=== PATIENT | male | born 1965 | race Caucasian/White ===

== ENCOUNTER → 2018-09-26 15:53 | Outpatient (CLI) | payer BC, SELFPAY ==
[2018-09-26 15:50] VITALS: BMI 27.3
--- NOTE | 2018-09-26 15:55 | RAD_ITS ---
STUDY: X-RAY - RIGHT KNEE REASON FOR EXAM: Male, 53 years old. Knee pain TECHNIQUE: 4 view(s) of the knee. COMPARISON: None. FINDINGS: Normal visualized distal femur. Normal visualized proximal tibia and fibula. Normal proximal tibiofibular articulation. Normal medial femorotibial compartment. Normal lateral femorotibial compartment. Normal patellofemoral articulation. The soft tissue structures are unremarkable. RAD/Knee 4 or More Views IMPRESSION: Normal x-ray examination of the knee. Electronically Signed: Lobo Lind MD at 16:34 EDT Tel , Service support ,
== END ==
PROVIDERS: Family Provider Family Medicine; PCP Family Medicine; Referring Provider Physician Assistant; Visit Provider Physician Assistant
DX: M25.561 Pain in right knee (principal)
CPT/HCPCS: 73564

== ENCOUNTER → 2020-04-01 09:10 | Outpatient (CLI) | payer BC, SELFPAY ==
[2018-09-26 15:50] VITALS: BMI 27.3
[2020-04-01 10:57] LABS: Anion Gap 7 (5-15); BUN 11 mg/dL (7-18); BUN/Creat Ratio 9.7 RATIO (10-20); Calcium,Total 9.5 mg/dL (8.5-10.1); Chloride 104 mmol/L (98-107); Cholesterol 165 mg/dL (200); Creatinine, Serum 1.13 mg/dL (0.70-1.30); EST Glomerular Filtration Rate 72 mL/min (>60); Est Glom Filt Rate - Afr Amer 87 mL/min (>60); Glucose 98 mg/dL (74-106); High Density Lipoprotein 47 mg/dL; Potassium 3.7 mmol/L (3.5-5.1); Sodium Level 137 mmol/L (136-145); Triglycerides 160 mg/dL; Very Low Density Lipoprotein 32 mg/dL (5-40)
== END ==
PROVIDERS: PCP Family Medicine; Referring Provider Family Medicine; Visit Provider Family Medicine
DX: Z00.00 Encounter for general adult medical examination without abnormal findings (principal)
CPT/HCPCS: 36415; 80048; 80061

== ENCOUNTER 2020-04-02 08:17 | Day surgery (SDC) | payer BC, SELFPAY ==
[2018-09-26 15:50] VITALS: BMI 27.3
--- NOTE | 2020-04-02 | COLBX_PTH ---
PATIENT: AMINA FELIZ LOC: EN U#:[id number] AGE/SX: 54/M ROOM: RE04/02/[address]: Dr. Otoniel Knapp MD : 1965 BED: DIS: 04/02/2020 SPEC #: [id number] RECD: 04/02/20 10:01 STATUS: DEBRA BEREKET #: [id number] JONI: 04/02/20 00:[address]: Otoniel Knapp DEPT: SURGICAL PATHOLOGY RECD BY: Carter Tate ENTERED: 04/02/20 10:01 SP TYPE: COLON BX OTHR DR: Dr. Domingo Min MD Tissues: A - Descending colon B - Sigmoid colon biopsy Procedures: Surgery Specimen Level IV HEADER OPERATION: Colonoscopy - open access (MAC) PRE-OP DIAGNOSIS: Screening colonoscopy TISSUE SUBMITTED: A - Descending colon polyp, B - Sigmoid colon polyp MICROSCOPIC DIAGNOSIS A. Descending colon polyp, biopsy: Fragments of tubular adenoma. B. Sigmoid colon polyp, biopsy: Tubular adenoma. SJ:devon 04/05/2020 MICROSCOPIC DESCRIPTION Slides are reviewed. GROSS DESCRIPTION A - Received in fixative is one container labeled with the patient's name and designated descending colon polyp. The specimen consists of multiple irregular fragments of light queveod soft tissue that in aggregate measure 2 x 1 x 0.2 cm. The specimen is totally submitted in one cassette. B - Received in fixative is one container labeled with the patient's name and designated sigmoid colon polyp. The specimen consists of one irregular fragment of light quevedo soft tissue that measures 1 x 1 x 0.6 cm. The specimen is bisected and totally submitted in one cassette. / AM:devon 04/02/20 TC:1 CPT: 35351 x2
[2020-04-02 08:45] VITALS: BP 131/84; PULSE 80; RESP 12; TEMP 36.7; O2SAT 98; BMI 32.3
[2020-04-02] MEDS: Lactated Ringers 1,000 ML 100 ML IV (08:57)
--- NOTE | 2020-04-02 09:05 | H&P.OPEN ---
History of Present Illness Date of Admission: 04/02/20 The patient is a 54 year old M here for screening colonoscopy. The patient denies any abdominal pain or blood in his stool. He has no family history of colon cancer. He is on no blood thinners. Past Medical/Surgical History - Planned Operation Planned Operative Procedure/s: cscope oa Date of Operative Procedure: 04/02/20 Permit Signed: No S.O.S: No Is This Patient Having a Total Joint: No - Previous Hospitalizations/Surgeries HX Hospitalizations: No HX of Surgeries: gallbladder Any Problems With Anesthesia: No You/Your Family Experience Fever (Hyperthermia) With Anes: No Cholinesterase deficiency: No - Cardiovascular Hx Chest Pain within Last 2 months: No Hx of Irregular Heartbeat and/or Afib: No Hx Heart Attack: No Hx Congestive Heart Failure: No Hx Rheumatic Fever: No Hx Hypertension: No Hx Internal Defibrillator: No Hx Pacemaker: No Hx Cardiac Catheterization: No Hx Cardiac Surgery/Stents/Etc.: No Hx Stress Test: No HX Edema: No Hx Pain in Legs when Walking/Leg Cramps: No - Respiratory Chronic Cough: No HX of Shortness of Breath: No Hoarseness: No Hx Chronic Obstructive Pulmonary Disease (COPD): No Hx Asthma: No Hx Emphysema: No Hx Sleep Apnea: No Hx Oxygen Use at Home: No Hx Respiratory Tract Infection/Cold (presently): No Do You Snore Loudly (louder than talking or can be heard): Yes Do You Often Feel Tired/ Fatigued/ Sleepy Dring Daytime?: No Has Anyone Observed You Stop Breathing During Sleep?: No Result (for STOP score): Negative Hx Smoking: Yes Smoking Status: Former smoker - Gastrointestinal Hx Gastroesophageal Reflux: Yes Controlled With Meds: Yes Hx Gastrointestinal Disorders: No Hx Gastrointestinal Bleed: No Hx Ulcer: No Hx Hiatal Hernia: No Difficulty Chewing/Swallowing: No Recent Onset of Swallowing Problems: No Special diet followed at home: No Hx Unplanned Weight Loss of 20#: No HX Unplanned Weight Gain of 20#: No - Neurological Hx Seizures: No HX Syncope/Blackout Spells/Unconsciousness: No Hx CVA/Stroke: No Hx Transient Ischemic Attacks (TIA): No Hx Multiple Sclerosis: No Hx Parkinson's Disease: No Hx Head/Neck Injury: No Hx Headaches: No Hx Back Injury/Pain: No Recent Onset of Speech Difficulty: No Restless Legs: No Does patient have nerve stimulator: No Patient instructed to have device shut off: No Rep notified?: No - Blood Disorder Hx Leukemia: No Bleeding Tendencies: No Hx Deep Vein Thrombosis: No Hx High Cholesterol: No Blood Transmitted Disease: No Hx Hepatitis: No Hx Cirrhosis: No Hx Anemia: No Hx Blood Disorders: No - Genitourinary Hx Renal Disease: No - Musculoskeletal Hx Arthritis: No Hx Rheumatoid Arthritis: No Hx Gout: No Recent Onset of an Orthopedic Problem: No - Endocrine Hx Diabetes: No Thyroid Disease: No Hx Steroid Therapy: No - Psycho/Social Hx Substance Use: No Hx Alcohol Use: Yes - 3 beers daily Hx Anxiety: No Hx Depression: No Mental Illness: No Hx Dementia: No - Miscellaneous Hx Cancer: No Recent Exposure to Contagious Disease: No Active MRSA: No Hx of C-Diff: No Any Loose Teeth: No Allergies No Known Allergies Allergy (Unverified 03/26/20 10:23) - Discharge Is Pt Admitted From a Penitentiary, or a Retirement: No After D/C, Where Do you Plan to Go: Return Home - Physical Exam Vitals/I&O's: Vital Signs Temp Pulse Resp BP Pulse Ox 98.0 F 80 12 131/84 H 98 04/02/20 08:45 04/02/20 08:45 04/02/20 08:45 04/02/20 08:45 04/02/20 08:45 Oxygen Delivery Method Room Air Weight: 212 lb 8.41 oz Body Mass Index (BMI) 32.3 General: Alert, Oriented x3 Neck: Supple, No JVD, No Nodes Lungs: Normal air movement Cardiovascular: Regular rate, Regular Rhythm Abdomen: Soft, Non Tender, Non-Distended Microbiology Past 72 Hours 04/01/20 08:45 Interface Orders SARS-CoV-2 Antigen (Rapid) - Final Current Medications Lactated Ringer's () 1,000 mls @ 100 mls/hr IV .Q10H KALEB Last Admin: 04/02/20 08:57 Dose: 100 mls/hr Documented by: Assessment/Plan All Active Problems (Last Updated 09/26/18 @ 15:51 by Susan Tee) Right knee pain (Acute) 54-year-old male for screening colonoscopy I explained endoscopy in detail to the patient. I explained the risks including but not limited to stroke or heart attack with anesthesia, perforation of the GI tract, bleeding, infection. I explained that any of these could necessitate further emergency surgery. The patient understands and all questions were answered sufficiently. The patient wishes to proceed with procedure. We discussed the current risks associated with COVID-19. While it is understood that there is a community spread of COVID-19, the risk of bernice COVID-19 while at [facility] ([facility]) is very low; however, the risk cannot be completely mitigated because of the community spread of the disease. We discussed in detail the risk of exposure to and/or potential harm posed by the COVID-19 virus with having a surgery/procedure at this time versus the risk of delaying the surgery/procedure. It is not possible to know either the risk of delaying the surgery or procedure or chance of getting an infection with perfect accuracy, but a joint decision was made to proceed at this time with the scheduled surgery/procedure as indicated on the consent form. Patient was notified that we will need to comply with any screening or testing [facility] wishes to perform or that surgery may be delayed for any positive results. Otoniel Knapp MD Pager: [facility] [address] [place] [address], [address] [place] [address] Office: Surgery Risks - Colonoscopy Risks Include but are not Limited To: Risks include but are not limited to: Bleeding, perforation requiring further surgery, inability to complete colonoscopy requiring barium enema.
--- NOTE | 2020-04-02 09:34 | OP.COLON_ITS ---
Patient Name: Lobo Salinas Procedure Date: 04/02/2020 9:05 AM Date of : 1965 Age: 54 Procedure: Colonoscopy Indications: Screening for colorectal malignant neoplasm Providers: Otoniel Knapp MD Referring MD: Domingo Min MD Medicines: Monitored Anesthesia Care Patient Profile: This is a 54 year old male. Refer to note in patient chart for documentation of history and physical. Last Colonoscopy: none. The patient's first colonoscopy is today. Complications: No immediate complications. Procedure: Pre-Anesthesia Assessment: - Prior to the procedure, a History and Physical was performed, and patient medications and allergies were reviewed. The patient's tolerance of previous anesthesia was also reviewed. The risks and benefits of the procedure and the sedation options and risks were discussed with the patient. All questions were answered, and informed consent was obtained. Prior Anticoagulants: The patient has taken no previous anticoagulant or antiplatelet agents. After reviewing the risks and benefits, the patient was deemed in satisfactory condition to undergo the procedure. After I obtained informed consent, the scope was passed under direct vision. Throughout the procedure, the patient's blood pressure, pulse, and oxygen saturations were monitored continuously. The pediatric colonoscope was introduced through the anus and advanced to the cecum, identified by appendiceal orifice and ileocecal valve. The colonoscopy was performed without difficulty. The patient tolerated the procedure well. The quality of the bowel preparation was good. Scope In: 9:16:56 AM Scope Withdrawal Time 0 hours 9 minutes 49 seconds Scope Out: 9:31:22 AM Total Procedure Duration Time 0 hours 14 minutes 26 seconds Findings: Two pedunculated polyps were found in the sigmoid colon and descending colon. The polyp in the sigmoid colon was 1 cm in diameter. These polyps were removed with a hot snare. Resection and retrieval were complete. The exam was otherwise without abnormality on direct and retroflexion views. Impression: - Two polyps in the sigmoid colon and in the descending colon, removed with a hot snare. Resected and retrieved. - The examination was otherwise normal on direct and retroflexion views. Recommendation: - Discharge patient to home. - Resume previous diet. - Continue present medications. - Await pathology results. - Repeat colonoscopy in 3 years for surveillance. Procedure Code(s): --- Professional --- 84377, Colonoscopy, flexible; with removal of tumor(s), polyp(s), or other lesion(s) by snare technique Diagnosis Code(s): --- Professional --- Z12.11, Encounter for screening for malignant neoplasm of colon D12.5, Benign neoplasm of sigmoid colon D12.4, Benign neoplasm of descending colon CPT copyright 2017 [employer]. All rights reserved. The codes documented in this report are preliminary and upon material handler loader review may be revised to meet current compliance requirements. Otoniel Knapp MD 04/02/2020 9:34:32 AM This report has been signed electronically. Number of Addenda: 0 Note Initiated On: 04/02/2020 9:05 AM
[2020-04-02 09:35] VITALS: BP 107/73; BP 131/84; PULSE 70; RESP 16; TEMP 36.2; O2SAT 97
--- NOTE | 2020-04-02 09:35 | OP.CCLET_ITS ---
04/02/2020 Domingo Min MD [address] [phone] Re : Colonoscopy procedure for Lobo Salinas Dear Dr. Min This procedure was performed on Thursday, April 02, 2020. My impressions and recommendations are as follows: Impressions : - Two polyps in the sigmoid colon and in the descending colon, removed with a hot snare. Resected and retrieved. - The examination was otherwise normal on direct and retroflexion views. Recommendations : - Discharge patient to home. - Resume previous diet. - Continue present medications. - Await pathology results. - Repeat colonoscopy in 3 years for surveillance. My findings are described in the full procedure note, which is enclosed. If I can be of further assistance, please feel free to contact me at Doctor phone number(s): , Work: . Sincerely, Otoniel Knapp MD 04/02/2020 9:34:32 AM This report has been signed electronically.
[2020-04-02 09:40] VITALS: BP 107/73; BP 131/84; PULSE 60; RESP 16; O2SAT 99
[2020-04-02 09:50] VITALS: BP 109/73; BP 109/76; BP 131/84; PULSE 63; PULSE 70; RESP 16; O2SAT 95; O2SAT 96
[2020-04-02 09:56] VITALS: BP 109/85; BP 131/84; PULSE 66; RESP 16; TEMP 36.2; O2SAT 97
[2020-04-02 10:00] VITALS: BP 131/84
== END 2020-04-02 10:16 | disposition home or self-care (01) ==
LOC: EN 08:18 → AC 08:18
PROVIDERS: PCP Family Medicine; Referring Provider Family Medicine; Visit Provider Surgery
PROC: 0DJD8ZZ Inspection of Lower Intestinal Tract, Via Natural or Artificial Opening Endoscopic (ICD-10-PCS; CPT 45378; principal; 2020-04-02 09:25)
DX: Z12.11 Encounter for screening for malignant neoplasm of colon (principal); D12.4 Benign neoplasm of descending colon; D12.5 Benign neoplasm of sigmoid colon; K21.9 Gastro-esophageal reflux disease without esophagitis; Z87.891 Personal history of nicotine dependence; Z20.822 Contact with and (suspected) exposure to COVID-19
CPT/HCPCS: 45385; 87426; 88305; C9803; J7120; J2405

== ENCOUNTER → 2022-09-04 | Outpatient (CLI) | payer BC, SELFPAY ==
[2022-09-04 18:06] LABS: Vitamin D,25 Hydroxy 30.7 ng/mL
[2022-09-04 18:11] LABS: Anion Gap 5 (5-15); BUN 11 mg/dL (7-18); BUN/Creat Ratio 9.8 RATIO (10-20); Calcium,Total 9.4 mg/dL (8.5-10.1); Chloride 102 mmol/L (98-107); Cholesterol 177 mg/dL (200); Creatinine, Serum 1.12 mg/dL (0.70-1.30); EST Glomerular Filtration Rate 72 mL/min (>60); Est Glom Filt Rate - Afr Amer 88 mL/min (>60); Glucose 101 mg/dL (74-106); High Density Lipoprotein 49 mg/dL; PSA,Total- Diagnostic 0.87 ng/mL (0.0-4.0); Potassium 3.7 mmol/L (3.5-5.1); Sodium Level 136 mmol/L (136-145); Triglycerides 329 mg/dL; Very Low Density Lipoprotein 66 mg/dL (5-40)
== END | disposition home or self-care (01) ==
LOC: MFPLAB 15:40
PROVIDERS: PCP Family Medicine; Visit Provider Family Medicine
DX: Z00.00 Encounter for general adult medical examination without abnormal findings (principal)
CPT/HCPCS: 36415; 80048; 80061; 82306; 84153

== ENCOUNTER 2023-04-03 07:48 | Day surgery (SDC) | payer BC, SELFPAY ==
[2023-04-03 08:11] VITALS: BP 126/88; PULSE 84; RESP 16; TEMP 36.7; O2SAT 100; BMI 31.3
[2023-04-03] MEDS: Lactated Ringers 1,000 ML 15 ML IV (08:14)
--- NOTE | 2023-04-03 09:00 | COLBX_PTH ---
PATHOLOGY RESULTS PATIENT: AMINA FELIZ LOC: EN U#:[id number] AGE/SX: 57/M ROOM: RE04/03/[address]: Dr. Otoniel Knapp MD : 1965 BED: DIS: 04/03/2023 SPEC #: [id number] RECD: 04/03/23 11:31 STATUS: DEBRA HOPKINSZita #: [id number] JONI: 04/03/23 09:[address]: Otoniel Knapp DEPT: SURGICAL PATHOLOGY RECD BY: Marisela Gregg ENTERED: 04/03/23 11:32 SP TYPE: COLON BX OTHR DR: Dr. Domingo Min MD Tissues: Descending colon Rectum, NOS Procedures: Surgery Specimen Level IV HEADER OPERATION: Colonoscopy - open access polypectomy PRE-OP DIAGNOSIS: History of colon polyps TISSUE SUBMITTED: A - Descending 60.0 cm colon polyp, B - Rectum polyp MICROSCOPIC DIAGNOSIS A. Descending colon polyp at 60.0 cm, polypectomy: Fragments of tubular adenoma. B. Rectal polyp, polypectomy: Hyperplastic polyp. AMBROSIO:devon 04/04/2023 MICROSCOPIC DESCRIPTION Slides are reviewed. GROSS DESCRIPTION A - Received in fixative is one container labeled with the patient's name and designated descending colon polyp. The specimen consists of multiple irregular fragments of light quevedo soft tissue measuring in aggregate 0.4 x 0.3 x 0.2 cm. A few fragments of fecal material are also noted. The specimen is totally submitted in one cassette. B - Received in fixative is one container labeled with the patient's name and designated rectal polyp. The specimen consists of one irregular fragment of light quevedo soft tissue that measures 0.3 x 0.3 x 0.1 cm. The specimen is totally submitted in one cassette. / AMBROSIO:devon 04/03/2023 TC:1 CPT: 96191 x2
--- NOTE | 2023-04-03 09:36 | H&P.OPEN ---
HPI - General HPI Narrative AMINA FELIZ, is a 57 M who presents for surveillance colonoscopy. Patient denies any abdominal pain or blood in the stool. He has had no issues since his last colonoscopy 3 years ago. At that time 2 large polyps were removed. [facility] Medical History (Updated 04/03/23 @ 09:[address] Otoniel Knapp MD) Alcohol use Former smoker Gastric reflux Hx of adenomatous colonic polyps Wears contact lenses Home Medications lansoprazole 30 mg capsule,delayed release 30 mg PO DAILY #90 caps 09/26/18 [History Last Taken Unknown] Allergy/AdvReac Type Severity Reaction Status Date / Time No Known Allergies Allergy Verified 04/03/23 08:06 Family History Other Heart disease Surgical History (Updated 03/28/23 @ 09:25 by Che Cam) Hx laparoscopic cholecystectomy Hx of colonoscopy with polypectomy Social History (Updated 03/06/23 @ 10:19 by Caroline Epperson) household members: spouse current occupational status: employed Smoking Status: Former smoker alcohol intake: current Past Medical/Surgical History Planned Operation Planned Operative Procedure/s: CSCOPE OA S.O.S: No Previous Hospitalizations/Surgeries HX Hospitalizations: No HX of Surgeries: gallbladder Any Problems With Anesthesia: No You/Your Family Experience Fever (Hyperthermia) With Anes: No Cholinesterase deficiency: No Cardiovascular Hx Chest Pain within Last 2 months: No Hx of Irregular Heartbeat and/or Afib: No Hx Heart Attack: No Hx Congestive Heart Failure: No Hx Rheumatic Fever: No Hx Hypertension: No Hx Internal Defibrillator: No Hx Pacemaker: No Hx Cardiac Catheterization: No Hx Cardiac Surgery/Stents/Etc.: No Hx Stress Test: No Hx Pain in Legs when Walking/Leg Cramps: No Respiratory Chronic Cough: No HX of Shortness of Breath: No Hoarseness: No Hx Chronic Obstructive Pulmonary Disease (COPD): No Hx Asthma: No Hx Emphysema: No Hx Sleep Apnea: No CPAP: No Hx Respiratory Tract Infection/Cold (presently): Yes (HEAD COLD/RESOLVED) Do You Snore Loudly (louder than talking or can be heard): Yes Do You Often Feel Tired/ Fatigued/ Sleepy Dring Daytime?: No Has Anyone Observed You Stop Breathing During Sleep?: No Result (for STOP score): Negative Hx Smoking: Yes Smoking Status: Former smoker Gastrointestinal Controlled With Meds: Yes Hx Gastrointestinal Disorders: No Hx Gastrointestinal Bleed: No Hx Ulcer: No Hx Hiatal Hernia: No Difficulty Chewing/Swallowing: No Special diet followed at home: No Hx Unplanned Weight Loss of 20#: No HX Unplanned Weight Gain of 20#: No Neurological Hx Seizures: No HX Syncope/Blackout Spells/Unconsciousness: No Hx Transient Ischemic Attacks (TIA): No Hx Multiple Sclerosis: No Hx Parkinson's Disease: No Hx Head/Neck Injury: No Hx Headaches: No Hx Back Injury/Pain: No Recent Onset of Speech Difficulty: No Restless Legs: No Does patient have nerve stimulator: No Blood Disorder Hx Leukemia: No Bleeding Tendencies: No Hx Deep Vein Thrombosis: No Hx High Cholesterol: No Blood Transmitted Disease: No Hx Hepatitis: No Hx Cirrhosis: No Hx Anemia: No Hx Blood Disorders: No Reproduction : No Genitourinary Hx Renal Disease: No Musculoskeletal Hx Arthritis: No Hx Rheumatoid Arthritis: No Hx Gout: No Recent Onset of an Orthopedic Problem: No Endocrine Hx Diabetes: No Thyroid Disease: No Hx Steroid Therapy: No Psycho/Social Hx Substance Use: No Hx Alcohol Use: Yes (3 beers daily) Hx Anxiety: No Hx Depression: No Mental Illness: No Hx Dementia: No Miscellaneous Hx Cancer: No Recent Exposure to Contagious Disease: No Hx of C-Diff: No Any Loose Teeth: No Allergies No Known Allergies Allergy (Verified 04/03/23 08:06) Discharge Is Pt Admitted From a Penitentiary, or a [facility]: No After D/C, Where Do you Plan to Go: Return Home Vital Signs Vital Signs Vital Signs: 04/03/23 08:11 04/03/23 08:11 Temperature 98.0 F Temperature Source Temporal Pulse Rate 84 Respiratory Rate 16 Respiratory Pattern Normal Blood Pressure 126/88 H Blood Pressure Mean 100 Blood Pressure Source Monitor Blood Pressure Position Semi-Fowlers Blood Pressure Location Left Arm Pulse Ox 100 Oxygen Delivery Method Room Air Weight Weight: 218 lb 7.649 oz Body Mass Index (BMI) 31.3 Physical Exam Const alert and oriented x3 HEENT normocephalic Eyes PERRL Resp normal respiratory effort and normal air movement Cardio regular rate and regular rhythm GI soft to palpation, non-tender and non-distended Extremity normal to inspection Assessment & Plan Assessment/Plan (1) History of colon polyps: PLAN: I explained endoscopy in detail to the patient. I explained the risks including but not limited to stroke or heart attack with anesthesia, perforation of the GI tract, bleeding, infection. I explained that any of these could necessitate further emergency surgery. The patient understands and all questions were answered sufficiently. The patient wishes to proceed with procedure. Otoniel Knapp MD Pager: [facility] [address] [place] [address] [address] [place] [address] Office: Surgery Risks - Colonoscopy Risks Include but are not Limited To: Risks include but are not limited to: Bleeding, perforation requiring further surgery, inability to complete colonoscopy requiring barium enema.
[2023-04-03 10:03] VITALS: BP 126/88; BP 87/64; PULSE 60; RESP 14; TEMP 36.3; O2SAT 93
--- NOTE | 2023-04-03 10:03 | OP.COLON_ITS ---
Patient Name: Lobo Salinas Procedure Date: 04/03/2023 9:36 AM Date of : 1965 Age: 57 Procedure: Colonoscopy Indications: High risk colon cancer surveillance: Personal history of colonic polyps Providers: Otoniel Knapp MD Referring MD: Otoniel Knapp MD Medicines: Monitored Anesthesia Care Patient Profile: This is a 57 year old male. Refer to note in patient chart for documentation of history and physical. Last Colonoscopy: 3 years ago. Complications: No immediate complications. Estimated blood loss: Minimal. Procedure: Pre-Anesthesia Assessment: - Prior to the procedure, a History and Physical was performed, and patient medications and allergies were reviewed. The patient's tolerance of previous anesthesia was also reviewed. The risks and benefits of the procedure and the sedation options and risks were discussed with the patient. All questions were answered, and informed consent was obtained. Prior Anticoagulants: The patient has taken no anticoagulant or antiplatelet agents. After reviewing the risks and benefits, the patient was deemed in satisfactory condition to undergo the procedure. After I obtained informed consent, the scope was passed under direct vision. Throughout the procedure, the patient's blood pressure, pulse, and oxygen saturations were monitored continuously. The colonoscope was introduced through the anus and advanced to the cecum, identified by appendiceal orifice and ileocecal valve. The colonoscopy was performed without difficulty. The patient tolerated the procedure well. The quality of the bowel preparation was good. The ileocecal valve, appendiceal orifice, and rectum were photographed. Scope In: 9:47:03 AM Scope Withdrawal Time 0 hours 8 minutes 20 seconds Scope Out: 9:59:17 AM Total Procedure Duration Time 0 hours 12 minutes 14 seconds Findings: Two polyps were found in the rectum and descending colon. The polyps were small in size. These polyps were removed with a hot snare. Resection and retrieval were complete. The exam was otherwise without abnormality on direct and retroflexion views. Impression: - Two small polyps in the rectum and in the descending colon, removed with a hot snare. Resected and retrieved. - The examination was otherwise normal on direct and retroflexion views. Recommendation: - Discharge patient to home. - Resume previous diet. - Continue present medications. - Repeat colonoscopy in 5 years for surveillance. Procedure Code(s): --- Professional --- 68292, Colonoscopy, flexible; with removal of tumor(s), polyp(s), or other lesion(s) by snare technique Diagnosis Code(s): --- Professional --- Z86.010, Personal history of colonic polyps D12.8, Benign neoplasm of rectum D12.4, Benign neoplasm of descending colon CPT copyright 2021 [employer]. All rights reserved. The codes documented in this report are preliminary and upon conservation scientist review may be revised to meet current compliance requirements. Otoniel Knapp MD 04/03/2023 10:02:30 AM This report has been signed electronically. Number of Addenda: 0 Note Initiated On: 04/03/2023 9:36 AM
--- NOTE | 2023-04-03 10:03 | OP.CCLET_ITS ---
04/03/2023 Domingo Min MD [address] [place] [address] Re : Colonoscopy procedure for Lobo Brad Dear Dr. Min This procedure was performed on Monday, April 03, 2023. My impressions and recommendations are as follows: Impressions : - Two small polyps in the rectum and in the descending colon, removed with a hot snare. Resected and retrieved. - The examination was otherwise normal on direct and retroflexion views. Recommendations : - Discharge patient to home. - Resume previous diet. - Continue present medications. - Repeat colonoscopy in 5 years for surveillance. My findings are described in the full procedure note, which is enclosed. If I can be of further assistance, please feel free to contact me at Doctor phone number(s): , Work: . Sincerely, Otoniel Knapp MD 04/03/2023 10:02:30 AM This report has been signed electronically.
[2023-04-03 10:05] VITALS: BP 126/88; BP 82/59; PULSE 61; RESP 12; O2SAT 93
[2023-04-03 10:10] VITALS: BP 126/88; BP 85/66; PULSE 58; RESP 14; O2SAT 100
[2023-04-03 10:21] VITALS: BP 110/77; BP 126/88; PULSE 59; RESP 14; TEMP 36.7; O2SAT 100
[2023-04-03 10:43] VITALS: BP 126/88
== END 2023-04-03 10:45 | disposition home or self-care (01) ==
LOC: EN 07:48 → AC 07:50
PROVIDERS: PCP Family Medicine; Referring Provider Surgery; Visit Provider Surgery
PROC: 0DJD8ZZ Inspection of Lower Intestinal Tract, Via Natural or Artificial Opening Endoscopic (ICD-10-PCS; CPT 45378; principal; 2023-04-03 08:55)
DX: Z12.11 Encounter for screening for malignant neoplasm of colon (principal); D12.4 Benign neoplasm of descending colon; D12.8 Benign neoplasm of rectum; K21.9 Gastro-esophageal reflux disease without esophagitis; F10.90 Alcohol use, unspecified, uncomplicated; Z90.49 Acquired absence of other specified parts of digestive tract; Z86.010 Personal history of colon polyps; Z87.891 Personal history of nicotine dependence
CPT/HCPCS: 45385; 88305; J7120; J2405

== ENCOUNTER 2023-07-11 14:30 | Outpatient (RCR) | payer BC, SELFPAY ==
--- NOTE | 2023-06-26 15:01 | HP.PTEVAL_ITS ---
Patient's Visit Information Visit Information Visit Information: AMINA FELIZ is a 57 year old M referred to Physical Therapy by PATTY Jordan with a diagnosis of SPRAIN OF UNSPECIFIED SITE OF LEFT KNEE. Date of Evaluation: 06/26/23 Physical Therapist: Bello Chambers, PT, Cert MDT, OCS Visit Plan Frequency: 2x /Week Duration: 4 Weeks Plan: PT INTERVENTIONS FLEXABILITY RLE,STRENGTHENING QUADS/HAMS/HIP ,FUNCTIONAL STRENGTHENING AND MODALITIES FOR PAIN/EDEMA Subjective Subjective: This 57 y/o male presents to physical therapy left knee strain. Patient has had left knee pain~ 3 weeks . Patient pain was insidious onset . [facility] recommended PT. Ibuproprofin 3x/day. No imaging. Patient pain medial knee described as ache occasional sharp. Aggravating walking/standing ,squatting and kneeling .No catching or locking. Alleviating over counter ibuprofen. Sleeping okay . Denies paresthesia/tingling. Patient pain affects QOL and function/job demands . Patient decrease pain with activity. SOCIAL: VOCATION: [employer] Left Knee: Pain Intensity (Out of 10): 5 Pain Intensity Range: 10 Comment: walking Objective Objective: POSTURE: WFL GAIT: reciprocal pattern NEURO: denies paresthesia/tingling EDEMA: absent PALPTION: medial joint online merchandising coordinator AROM : 0-135 degrees supine flexion MMT : Quads/hams 4/5 ,hip flexion 4/5 ,hip abd 4-/ 5 ,ankle 5/5 FLEXABILITY: hamstring min tight ,quads min tight Special Tests L Knee Tono - Meniscus: Negative L Knee Meera - ACL: Negative L Knee Anterior Drawer - ACL: Negative L Knee Valgus - MCL: Negative L Knee Varus - LCL: Negative L Knee Patellar Apprehension - PFS: Negative L Knee Patellar Grind - PFS: Negative Balance/Special Test Scores Lower Extremity Functional Score: 49 Goals Goal 1:: I with HEP for knee Goal Time Frame: 4-6 Weeks Goal 2:: Patient to demonstrate 75% improvement with less pain and improved function with walking/standing Goal Time Frame: 4-6 Weeks Goal 3:: Patient to improve LFES score by 5 -10 points to improve QOL and function Goal Time Frame: 4-6 Weeks Goal 4:: Patient to improve ability to walk /stand stairs and squatting with min to no limitations Goal Time Frame: 4-6 Weeks Rehabilitation Potential Physical Therapy Diagnosis: This patient has left knee pain medial compartment possible degenerative joint vs mild meniscus with pain with activity walking/standing stairs and squatting ,joint line pain medial edema improved thus benefit from skilled PT Rehabilitation Potential: Good Anticipated Interventions Patient/Client Instruction: Educate patient on: Condition and Plan of Care For the Purpose of:: To decrease pain, To increase ROM, To improve muscle performance and motor function, To improve ability to perform ADL's, To increase tolerance to activity/condition/position, To improve ability of physical actions for home/community/work/leisure, To improve gait and locomotor functions, To improve health of tissue, To decrease soft tissue restriction, To increase flexibility/ROM and To prevent re-injury Therapeutic Exercise to Include: Strength training, Power training, Endurance training and Active ROM Comment: QUADS/HAMS /HIP For the Purpose of:: To decrease pain, To increase ROM, To improve muscle performance and motor function, To improve ability to perform ADL's, To increase tolerance to activity/condition/position, To improve ability of physical actions for home/community/work/leisure, To improve health of tissue, To decrease soft tissue restriction and To improve tolerance to ADL's TENS: Yes IF ES: Yes Cryotherapy (ice pack, ice massage): Yes Thermo therapy (hot pack): Yes Ultrasound (thermal/non thermal): Yes For the Purpose of:: To decrease pain, To increase ROM, To improve nutrient delivery to tissue, To increase oxygenation perfusion, To improve health of tissue and To decrease soft tissue restriction Text: Thank you for the opportunity to evaluate your patient. For Medicare and Medicare HMO plans, please review the plan of care and approve it. It will need to be FAXED BACK to us at [phone] for Medicare purposes. For Medicare only, by signing this I certify the plan of care. Please let me know if there are questions or concerns regarding this plan of care. Physician Signature: Date:
--- NOTE | 2023-09-14 14:57 | HP.PT.NRP ---
Patient Information Patient Information: AMINA FELIZ was seen in my office for initial evaluation on 06/26/23. The following Plan of Care was established for this patient: POC Established Initial Frequency: 2x /Week Initial Duration: 4 Weeks Anticipated Interventions Patient/Client Instruction: Educate patient on: Condition and Plan of Care For the Purpose of:: To decrease pain, To increase ROM, To improve muscle performance and motor function, To improve ability to perform ADL's, To increase tolerance to activity/condition/position, To improve ability of physical actions for home/community/work/leisure, To improve gait and locomotor functions, To improve health of tissue, To decrease soft tissue restriction, To increase flexibility/ROM and To prevent re-injury Therapeutic Exercise to Include: Strength training, Power training, Endurance training and Active ROM For the Purpose of:: To decrease pain, To increase ROM, To improve muscle performance and motor function, To improve ability to perform ADL's, To increase tolerance to activity/condition/position, To improve ability of physical actions for home/community/work/leisure, To improve health of tissue, To decrease soft tissue restriction and To improve tolerance to ADL's TENS: Yes IF ES: Yes Cryotherapy (ice pack, ice massage): Yes Thermo therapy (hot pack): Yes Ultrasound (thermal/non thermal): Yes For the Purpose of:: To decrease pain, To increase ROM, To improve nutrient delivery to tissue, To increase oxygenation perfusion, To improve health of tissue and To decrease soft tissue restriction Last Seen Last Seen: This patient was last seen in our office . Pertinent comments regarding their Physical therapy will appear below: Patient taking medication for pain knee left for ROM and strengthening thus d/c At this point I will be discontinuing this patient from physical therapy. I would be happy to see this patient again in the future if found appropriate by the physician. Thank you! Bello Chambers, PT, Cert MDT, OCS Balance/Gait/Functional tests Balance/Special Test Scores Lower Extremity Functional Score: 73
== END 2023-07-11 19:00 | disposition home or self-care (01) ==
LOC: PT 14:30
PROVIDERS: PCP Family Medicine; Referring Provider Physician Assistant; Visit Provider Physician Assistant
DX: S83.92XD Sprain of unspecified site of left knee, subsequent encounter (principal)
CPT/HCPCS: 97110; 97162

== ENCOUNTER → 2024-08-18 | Outpatient (CLI) | payer BC, SELFPAY ==
[2024-08-18 10:48] LABS: AST(SGOT) 27 U/L (<=37); Alanine Aminotransfer ALT/SGPT 30 U/L (<=46); Albumin, Serum 4.4 g/dL (3.5-5.0); Alkaline Phosphatase 59 U/L (40-129); Anion Gap 13 (5-15); BUN 13 mg/dL (4-19); BUN/Creat Ratio 11.8 RATIO (10-20); Calcium,Total 9.6 mg/dL (7.6-11.0); Carbon Dioxide 24.6 mmol/L (21.0-32.0); Chloride 102 mmol/L (98-108); Cholesterol 165 mg/dL (<=200); Globulin 2.8 g/dL (2.2-4.2); Glucose 107 mg/dL (70-99); Low Density Lipoprotein Calc. 54 mg/dL; Potassium 3.9 mmol/L (3.3-5.1); Triglycerides 328 mg/dL; Very Low Density Lipoprotein 66 mg/dL (5-40); cholesterol:hdl ratio screen 3.62
== END | disposition home or self-care (01) ==
LOC: MTLAB 07:09
PROVIDERS: PCP Family Medicine; Referring Provider Family Medicine; Visit Provider Family Medicine
DX: Z00.00 Encounter for general adult medical examination without abnormal findings (principal)
CPT/HCPCS: 36415; 80053; 80061